=== PATIENT | male | born 2000 | race Two or more races ===

== ENCOUNTER 2024-08-21 12:44 | Emergency (ER) | payer OTHER ==
[~2024-08-21] VITALS: Ht 167.6 cm; Wt 54.4 kg
[2024-08-21 15:28] VITALS: BP 119/78; TEMP 98.2; O2SAT 97
== END 2024-08-21 15:29 | disposition home or self-care (01) ==
LOC: ER 12:55
DX: M79.672 Pain in left foot (principal); M79.671 Pain in right foot

== ENCOUNTER 2024-08-24 19:41 | Emergency (ER) | payer OTHER ==
[~2024-08-24] VITALS: Ht 167.6 cm; Wt 77.1 kg
[2024-08-24] MEDS ORDERED: METH4TAB17 PO (20:43)
[2024-08-24] MEDS ORDERED: predniSONE 20 MG TABLET ONE (20:45)
[2024-08-24] MEDS: predniSONE 20 MG TABLET PO ONE (20:48)
[2024-08-24 21:59] VITALS: BP 123/70; TEMP 98.7; O2SAT 99
== END 2024-08-24 21:59 | disposition home or self-care (01) ==
LOC: ER 19:46
DX: M79.671 Pain in right foot (principal); M79.672 Pain in left foot; Z60.2 Problems related to living alone
CPT/HCPCS: 99283; J7512

== ENCOUNTER → 2024-09-15 | Emergency (ER) | payer MEDICAID, OTHER ==
[~2024-09-15] VITALS: Ht 167.6 cm; Wt 77.1 kg
[~2024-09-15] MED LIST: AMOX500C2 PO; METH4TAB17 PO
[2024-09-15 13:28] VITALS: BP 118/75; TEMP 98.2; O2SAT 100
== END | disposition home or self-care (01) ==
LOC: ER 11:39
DX: J31.2 Chronic pharyngitis (principal); Z60.2 Problems related to living alone; Z79.899 Other long term (current) drug therapy
CPT/HCPCS: 86403-TC; 87070-TC